=== PATIENT | male | born 1945 | race Caucasian/White ===

== ENCOUNTER → 2017-11-24 | Outpatient (CLI) | payer MEDICARE ==
--- NOTE | 2017-11-24 15:42 | US ---
EXAMINATION TYPE: US scrotum with doppler. Grayscale and color Doppler Duplex imaging performed of steven solitario scrotum. DATE OF EXAM: 11/24/2017 COMPARISON: US 10/23/2015 CLINICAL HISTORY: R19.00 Intra-Abdominal And Pelvic Swelling, Mass. Patient states history of hydroce le. Swelling more on the left EXAM MEASUREMENTS: TESTICLES: Right Testicle: 3.7 x 2.3 x 3.1 cm Left Testicle: 3.8 X 2.1 X 3.9 cm EPIDIDYMIS HEAD: Right Epididymis: 2.2 X 0.7 cm, cystic area visualized measuring 0.5 cm Left Epididymis: Not visualized with certainty due to large cystic area Doppler performed to assess for testicular vascularity; good bilateral color flow and waveforms are s een. There is no evidence of testicular torsion. Presence of varicoceles: Yes, on the left There is a cystic area visualize medial to the left testicle measuring 6.3 x 4.6 x 5.6 cm. Appearing within the testicle, there is a cystic area visualized measuring 2.1 x 1.2 x 2.1 cm. IMPRESSION: Persistent moderate sized left scrotal fluid collection or hydrocele which is not complet nitin anechoic on today's study. This is less prominent in size versus prior exam. There is smaller thi n-walled cystic lesion adjacent left testicle on lateral aspect redemonstrated. No new worrisome intr atesticular lesion identified.
== END | disposition home or self-care (01) ==
LOC: RADUSWWP 12:18
PROVIDERS: ATTEND Family Medicine
DX: N44.2 Benign cyst of testis (principal)
CPT/HCPCS: 76870; 93975

== ENCOUNTER 2017-12-01 07:10 | Day surgery (SDC) | payer MEDICARE ==
[2017-11-28 10:58] VITALS: BMI 30.5
[~2017-12-01 07:10] MED LIST: LACTATED RINGERS 1,000 ML IV SCH; LIDOCAINE 1% 20 ML VIAL (10MG/ML) FOR IV START INTRADERMA PRN
[2017-12-01 07:37] VITALS: TEMP 97.7
[2017-12-01 07:40] LABS: Glucose,Whole Blood 94 mg/dL (75-99)
[2017-12-01] MEDS ORDERED: GLYCOPYRROLATE 0.2 MG/ML 2 ML VIAL ONE (08:37)
[2017-12-01] MEDS ORDERED: LIDOCAINE 1% INJ 10MG/ML (20 ML MDV) ONE (08:37)
[2017-12-01] MEDS ORDERED: PROPOFOL 10 MG/ML 20 ML VIAL IV ONE (08:37)
[2017-12-01] MEDS ORDERED: IV FLUID CONTINUATION 1,000 ML IV ONE (09:17)
--- NOTE | 2017-12-01 09:18 | P.PCN ---
Date of Procedure: 12/01/17 Procedure(s) Performed: Procedure: Total colonoscopy. Preoperative diagnosis: Screening for neoplasia. Postoperative diagnosis: Sigmoid diverticulosis with no evidence of acute diverticulitis, strictures, polyps or cancer. Preparation: HalfLytely prep. Sedation: Was provided by anesthesia. Brief clinical history: The patient is a 72-year-old male who is scheduled for this evaluation for screening for neoplasia age being his risk factor. There is no family history of colon cancer. He has no abdominal complaints, bleeding or anemia. His last colonoscopy was around 10 years ago. Procedure: With the patient on his left lateral decubitus position and after informed consent and adequate sedation, the perianal area was inspected and it did not show any fissures or fistulas. There were no masses felt on digital rectal examination. The Olympus CFQ 160L video colonoscope was then inserted in the rectum in the usual fashion and advanced to the cecum. There were multiple diverticular orifices seen scattered in the sigmoid with no evidence of acute diverticulitis or strictures. The mucosa appeared healthy. No polyps or tumors were seen. I retroflexed the endoscope in the rectum before the endoscope was withdrawn. Low-grade internal hemorrhoids were noted with no evidence of bleeding. The patient tolerated the procedure well. Plan: The patient was reassured. Discussed dietary measures. He will follow up with you as planned and I recommended repeat exam in 10 years depending on his overall health at that time.
[2017-12-01 09:34] VITALS: BP 117/63; PULSE 62; RESP 18
== END 2017-12-01 10:04 | disposition home or self-care (01) ==
LOC: ORWHC2ENDO 07:10
DX: Z12.11 Encounter for screening for malignant neoplasm of colon (principal); K57.30 Diverticulosis of large intestine without perforation or abscess without bleeding; K64.8 Other hemorrhoids; E11.9 Type 2 diabetes mellitus without complications; I10 Essential (primary) hypertension; G47.33 Obstructive sleep apnea (adult) (pediatric); Z99.89 Dependence on other enabling machines and devices; Z79.899 Other long term (current) drug therapy
CPT/HCPCS: 45378; J2001; J2704

== ENCOUNTER → 2017-12-28 | Outpatient (CLI) | payer MEDICARE ==
--- NOTE | 2017-12-29 07:19 | CT ---
EXAMINATION TYPE: CT soft tissue neck w con DATE OF EXAM: 12/28/2017 COMPARISON: NONE HISTORY: Swelling to left side of neck marked by BB. CT DLP: 392.7 mGycm CONTRAST: Patient injected with 100 mL of Omnipaque 300. TECHNIQUE: Axial images at 3 mm thick sections. Reconstructed images in the coronal plane and sagitt al plane are reviewed. FINDINGS: Limited CT sections are obtained the lung apices. The lung apices appear clear. CT neck: The torus tubarius and fossa of Rosenmuller are normal. Operations [employer] spaces are normal. Ther e is some mucosal thickening within anterior ethmoid air cells. Small ossifications along the right m id ethmoid air cells. Paranasal sinuses are otherwise clear. Mastoid air cells are clear. Parotid glands appear normal and symmetrical. Submandibular glands, are normal. Parapharyngeal spac es are normal. No suspicious adenopathy is evident. At the level marked by the BB the posterior margin of the sternocleidomastoid muscle is evident. No u nderlying suspicious mass is present. Some subtle stranding may be within the fat. Scattered related to some inflammatory change. Discrete mass is not identified. The hypopharynx appears within normal limits. Vocal cord level appear symmetrical. Thyroid as visualized is normal. Uncovertebral joint hypertrophy and some facet hypertrophy on the left is present. Degenerative disc changes present C5-C6. IMPRESSIONS: 1. Some very minimal inflammatory change within the subcutaneous and deeper fat may be present at the level marked by the BB. Discrete mass is not identified. 2. Remaining portions of the CT neck are normal.
== END | disposition home or self-care (01) ==
LOC: RADCTMAIN 16:53
PROVIDERS: ATTEND Family Medicine
DX: R59.0 Localized enlarged lymph nodes (principal)
CPT/HCPCS: 82565; 84520; 70491; 36415; Q9967

== ENCOUNTER → 2018-01-19 | Outpatient (CLI) | payer MEDICARE ==
--- NOTE | 2018-01-19 12:37 | SFUN ---
SLEEP STUDY FOLLOW UP NOTE DATE OF SERVICE: 01/19/2018 72-year-old gentleman who has been followed in Sleep Center for treatment of obstructive sleep apnea-hypopnea syndrome. The patient successfully continued to use his CPAP equipment without problems. No snoring during the sleep. Normal Douglas Sleepiness Scale at 2. I checked his CPAP unit. CPAP pressure is 10 cm of water. Usage is 100% of nights for more than 4 hours every 7.2 hours. Apnea-hypopnea index reading for the last month is only 1.9, which is normal. Leak is 29 L/minute which is in acceptable range, but close to the border. MEDICATIONS: Lisinopril, Crestor. PHYSICAL EXAM: GENERAL Patient in no distress. VITAL SIGNS BP 116/62, HR 64, RR 16, height 5-3/4, weight 217.6, BMI 32.2, temperature 97.0, oxygen saturation on room air 96%. HEENT PERRLA, EOMI, evaluation of oropharynx showed moderately low position of soft palate. NECK Supple, no JVD. Thyroid is not palpable. LUNGS Clear to percussion and to auscultation. Good air exchange. No wheezing or rhonchi. HEART S1, S2 regular. No murmurs, gallops, or rubs. ABDOMEN Slightly obese. Soft and nontender. Bowel sounds are present. No organomegaly appreciated. EXTREMITIES No clubbing or cyanosis. DRESS OPERATOR Awake, alert, and oriented X3. Cranial nerves 2 to 7 intact. There is no fasciculation or atrophy. noted. No focal deficits observed. IMPRESSION: 1. Obstructive sleep apnea-hypopnea syndrome, on full control with CPAP at 10 cm of water. Patient demonstrated 100% compliance with treatment, benefitting from treatment. 2. Hypertension. 3. Hyperlipidemia. 4. Mild obesity. 5. Status post craniotomy in the past for subdural hematoma. PLAN: 1. Continue treatment with CPAP every night for the whole night with the same level of pressure. 2. Losing weight. 3. Prescription for all necessary CPAP supplies including mask, tube, filters. 4. No driving if feeling any sleepiness. Thank you very much for allowing me to participate in management of your patient. Sincerely, Chucky Mendoza MD, PhD, FAASM Diplomat of [employer] [place] [employer] [facility] Evi ALEXANDER / IJN: [id number] /
== END ==
LOC: SLEEP 11:17
PROVIDERS: ATTEND Internal Medicine
DX: G47.33 Obstructive sleep apnea (adult) (pediatric) (principal); I10 Essential (primary) hypertension; E78.5 Hyperlipidemia, unspecified; E66.9 Obesity, unspecified; Z98.890 Other specified postprocedural states; Z99.89 Dependence on other enabling machines and devices; Z79.899 Other long term (current) drug therapy

== ENCOUNTER 2018-02-14 09:22 | Day surgery (SDC) | payer MEDICARE ==
[2018-02-07 12:05] VITALS: BMI 31.0
[~2018-02-14 09:22] MED LIST changes: -LIDOCAINE 1% 20 ML VIAL (10MG/ML) FOR IV START INTRADERMA PRN
[2018-02-14 10:46] VITALS: TEMP 97.7
[2018-02-14] MEDS: LIDOCAINE 1% 20 ML VIAL (10MG/ML) FOR IV START INTRADERMA PRN ×2 (10:55→10:58)
[2018-02-14] MEDS: PHENYLEPHRINE 10% OPHTH DROPS 5 ML BTL OP ONE ×3 (10:57→11:10)
[2018-02-14] MEDS: CYCLOPENTOLATE 1% OPHTH SOLN 2 ML BTL OP ONE ×3 (11:00→11:12)
[2018-02-14] MEDS: FLURBIPROFEN 0.03% OPHTH DROPS 2.5 ML BTL OP ONE ×2 (11:02→11:08)
[2018-02-14] MEDS ORDERED: PROPOFOL 10 MG/ML 20 ML VIAL IV ONE (11:20)
[2018-02-14] MEDS ORDERED: LIDOCAINE 1% INJ 10MG/ML (20 ML MDV) ONE (11:20)
[2018-02-14] MEDS ORDERED: BALANCED SALT IRRIG SOLN COMB2 15 ML IRRIG.SOLN INTRAOCULA ONE (11:25)
[2018-02-14] MEDS ORDERED: HYALURONATE SODIUM INTRAOCULAR 1 EACH SYRINGE (10MG/ML) INTRAOCULA ONE (11:26)
[2018-02-14] MEDS ORDERED: EPINEPHrine (PF) 0.5 ML in BALANCED SALT IRRIG SOLN COMB2 500 ML IRRIGATION ONE (11:28)
--- NOTE | 2018-02-14 11:44 | P.OP ---
Date of Procedure: 02/14/18 Procedure(s) Performed: PREOPERATIVE DIAGNOSIS: Cataract, right eye. POSTOPERATIVE DIAGNOSIS: Cataract, right eye. OPERATION: Phacoemulsification cataract, right eye. DESCRIPTION OF PROCEDURE: The patient was taken to the preoperative holding area. Intravenous Propofol was given so as to bring about adequate sedation. The following mixture was given for local anesthesia: 5 mL of 2% lidocaine, 5 mL of 0.75% Marcaine, and 1 mL of Wydase. Approximately 4 mL was injected in the retrobulbar space of the surgical eye. Additional 1 mL was then directed to the temporal area of the surgical eye. This was performed to allow adequate neurological block of the facial muscles. The patient was revived and then taken into the operative room. The patient was prepped and draped in the usual sterile manner for the operative eye. A lid speculum was put into position. The conjunctiva was resected back from the limbus in the 12 o'clock position. Bleeding was controlled with electrocautery. A #69 blade was then used and a half-thickness scleral incision approximately 1-mm posterior to the limbus was made on bare sclera. This was shelved in the clear cornea using a crescent knife. Next a 15-degree blade was used to make a stab incision at the 3 o' clock position at the corneolimbal interface. Keratome blade was then used and the superior wound was extended into the anterior chamber. Viscoelastic was injected into the anterior chamber and to maintain its form. Next, a cystotome was used and a continuous anterior capsulotomy was made without difficulty. Hydrodissection using a blunt cannula and BSS was performed. Phaco probe was then employed and a groove extending from 12 to 6 o'clock in the lens was created. A Clark wand was used through the stab incision so as to perform a divide and conquer technique. Next an irrigation aspiration probe was utilized and any residual cortex was removed from the eye. Again, viscoelastic was injected into the anterior chamber. An Virgilio posterior chamber lens implant was placed in the cartridge and injected into the anterior chamber without difficulty. The logolineupey hook was utilized to spin the lens into position and this was again performed without any difficulty. The irrigation and aspiration probe was again employed and any residual viscoelastic was removed from the eye. Then BSS was injected into the limbal stab incision and the anterior chamber re-inflated. The conjunctiva was reapproximated using electrocautery. One drop of 0.25% Timoptic was placed over the corneal along with TobraDex ophthalmic ointment. Two sterile patches and a Ellis eye shield were taped into position. The patient was transported to the recovery room in stable condition. Pathology: none sent Condition: stable Disposition: same day
[2018-02-14 11:47] VITALS: RESP 18
[2018-02-14 12:10] VITALS: BP 114/66; PULSE 46
[2018-02-14] MEDS ORDERED: BUPIVACAINE (PF) 0.75% 5 ML, HYALURONIDASE, HUMAN RECOMB 150 UNIT, LIDOCAINE 2% (PF) 10... MISCELLANE ONE ×3 (23:00)
[2018-02-14] MEDS ORDERED: GENTAMICIN/PREDNISOL AC OPHTH OINT 3.5GM OPHTHALMIC ONE (23:00)
[2018-02-14] MEDS ORDERED: TIMOLOL 0.5% OPHTH DROPS 5 ML BTL OP ONE (23:00)
== END 2018-02-14 12:25 | disposition home or self-care (01) ==
LOC: OR 09:22
PROVIDERS: ATTEND Ophthalmology
DX: H25.11 Age-related nuclear cataract, right eye (principal); I10 Essential (primary) hypertension; E78.5 Hyperlipidemia, unspecified; G47.33 Obstructive sleep apnea (adult) (pediatric); Z99.89 Dependence on other enabling machines and devices; Z79.82 Long term (current) use of aspirin; Z79.899 Other long term (current) drug therapy; Z87.891 Personal history of nicotine dependence
CPT/HCPCS: 66984; V2632; V2788; J3470; J2001 ×2; J0171; J2704

== ENCOUNTER 2018-03-21 08:17 | Day surgery (SDC) | payer MEDICARE ==
[2018-03-09 15:11] VITALS: BMI 30.4
[~2018-03-21 08:17] MED LIST changes: +BUPIVACAINE (PF) 0.75% 5 ML, HYALURONIDASE, HUMAN RECOMB 150 UNIT, LIDOCAINE 2% (PF) 10... MISCELLANE ONE; +GENTAMICIN/PREDNISOL AC OPHTH OINT 3.5GM OPHTHALMIC ONE; +TIMOLOL 0.5% OPHTH DROPS 5 ML BTL OP ONE
[2018-03-21] MEDS: CYCLOPENTOLATE 1% OPHTH SOLN 2 ML BTL OP ONE ×3 (09:22→09:40)
[2018-03-21 09:23] VITALS: TEMP 97
[2018-03-21] MEDS: FLURBIPROFEN 0.03% OPHTH DROPS 2.5 ML BTL OP ONE ×3 (09:25→09:43)
[2018-03-21] MEDS: PHENYLEPHRINE 10% OPHTH DROPS 5 ML BTL OP ONE ×3 (09:28→09:46)
[2018-03-21 09:37] LABS: Glucose,Whole Blood 101 mg/dL (75-99)
[2018-03-21] MEDS ORDERED: PROPOFOL 10 MG/ML 20 ML VIAL IV ONE (10:22)
[2018-03-21] MEDS ORDERED: EPINEPHrine (PF) 0.5 ML in BALANCED SALT IRRIG SOLN COMB2 500 ML IRRIGATION ONE (10:31)
[2018-03-21] MEDS ORDERED: HYALURONATE SODIUM INTRAOCULAR 1 EACH SYRINGE (10MG/ML) INTRAOCULA ONE (10:33)
[2018-03-21] MEDS ORDERED: BALANCED SALT IRRIG SOLN COMB2 15 ML IRRIG.SOLN IRRIGATION ONE (10:33)
--- NOTE | 2018-03-21 10:44 | P.OP ---
Date of Procedure: 03/21/18 Procedure(s) Performed: PREOPERATIVE DIAGNOSIS: Cataract, left eye. POSTOPERATIVE DIAGNOSIS: Cataract, left eye. OPERATION: Phacoemulsification cataract, left eye. DESCRIPTION OF PROCEDURE: The patient was taken to the preoperative holding area. Intravenous Propofol was given so as to bring about adequate sedation. The following mixture was given for local anesthesia: 5 mL of 2% lidocaine, 5 mL of 0.75% Marcaine, and 1 mL of Wydase. Approximately 4 mL was injected in the retrobulbar space of the surgical eye. Additional 1 mL was then directed to the temporal area of the surgical eye. This was performed to allow adequate neurological block of the facial muscles. The patient was revived and then taken into the operative room. The patient was prepped and draped in the usual sterile manner for the operative eye. A lid speculum was put into position. The conjunctiva was resected back from the limbus in the 12 o'clock position. Bleeding was controlled with electrocautery. A #69 blade was then used and a half-thickness scleral incision approximately 1-mm posterior to the limbus was made on bare sclera. This was shelved in the clear cornea using a crescent knife. Next a 15-degree blade was used to make a stab incision at the 3 o' clock position at the corneolimbal interface. Keratome blade was then used and the superior wound was extended into the anterior chamber. Viscoelastic was injected into the anterior chamber and to maintain its form. Next, a cystotome was used and a continuous anterior capsulotomy was made without difficulty. Hydrodissection using a blunt cannula and BSS was performed. Phaco probe was then employed and a groove extending from 12 to 6 o'clock in the lens was created. A Clark wand was used through the stab incision so as to perform a divide and conquer technique. Next an irrigation aspiration probe was utilized and any residual cortex was removed from the eye. Again, viscoelastic was injected into the anterior chamber. An Virgilio Restor posterior chamber lens implant was placed in the cartridge and injected into the anterior chamber without difficulty. The Sinskey hook was utilized to spin the lens into position and this was again performed without any difficulty. The irrigation and aspiration probe was again employed and any residual viscoelastic was removed from the eye. Then BSS was injected into the limbal stab incision and the anterior chamber re-inflated. The conjunctiva was reapproximated using electrocautery. One drop of 0.25% Timoptic was placed over the corneal along with TobraDex ophthalmic ointment. Two sterile patches and a Ellis eye shield were taped into position. The patient was transported to the recovery room in stable condition. Pathology: none sent Condition: stable Disposition: same day
[2018-03-21 10:50] VITALS: RESP 18
[2018-03-21 11:23] VITALS: BP 125/68; PULSE 48
== END 2018-03-21 11:20 | disposition home or self-care (01) ==
LOC: OR 08:17
PROVIDERS: ATTEND Ophthalmology
DX: H25.12 Age-related nuclear cataract, left eye (principal); I10 Essential (primary) hypertension; E78.5 Hyperlipidemia, unspecified; G47.33 Obstructive sleep apnea (adult) (pediatric); E11.9 Type 2 diabetes mellitus without complications; Z79.899 Other long term (current) drug therapy; Z87.891 Personal history of nicotine dependence; Z98.41 Cataract extraction status, right eye; Z96.1 Presence of intraocular lens
CPT/HCPCS: 66984; V2632; V2788; J3470; J2001; J0171; J2704

== ENCOUNTER → 2019-02-22 | Outpatient (CLI) | payer MEDICARE ==
--- NOTE | 2019-02-22 11:15 | SFUN ---
SLEEP CENTER FOLLOW UP NOTE DATE OF SERVICE: 02/22/2019 This 73-year-old gentleman had been followed in sleep center for treatment of obstructive sleep apnea-hypopnea syndrome. The patient continued to use his CPAP equipment every night for the whole night without any problems related to mask fitting, pressure or humidification. Stanton Sleepiness Scale today is 2. I checked his CPAP unit. CPAP pressure is 10 cm of water. Usage is 100% of the time more than 4 hours, average 7.5 hours. Leak 31 L/minute which is borderline. Apnea- hypopnea index is only 1.8, which is totally perfect. MEDICATIONS: Lisinopril, Crestor. PHYSICAL EXAMINATION: During physical exam, patient in no distress. VITAL SIGNS: BP 121/62, HR 58, RR 16, height 5 feet 8-1/2 inches, weight 214 pounds, body mass index 32.0, temperature 97.2, oxygen saturation at room air 95%. HEENT: PERRLA, EOMI. Oropharynx moderately low position of soft palate. NECK: Supple, no JVD. Thyroid is not palpable. LUNGS: Clear to percussion and to auscultation. Good air exchange. No wheezing or rhonchi. HEART: S1, S2 regular. No murmurs, gallops, or rubs. ABDOMEN: Slightly obese. EXTREMITIES: No clubbing or cyanosis. OUTER DIAMETER GRINDER: Awake, alert, and oriented X3. Cranial nerves 2 to 7 intact. There is no fasciculation or atrophy. noted. No focal deficits observed. IMPRESSION: 1. Obstructive sleep apnea-hypopnea syndrome. Patient demonstrated 100% compliance with treatment benefitting from treatment. 2. Hypertension. 3. Mild obesity. 4. Hyperlipidemia. 5. Status post craniotomy in the past for subdural hematoma. PLAN: 1. Patient will continue to use CPAP equipment with the same-level of pressure 10 cm of water every night for the whole night. 2. Watching and losing weight. 3. Sleep hygiene with regular time in bed for at least 7-1/2 to 8 hours. 4. No driving if feeling any sleepiness. 5. We will maintain all necessary CPAP supplies prescriptions including mask, tubes and filters. Thank you very much for allowing me to participate in management of your patient. Sincerely, Chucky Mendoza MD, PhD, FAASM Diplomat of [employer] [facility] [place] MMODL / IJN: [id number] /
== END ==
LOC: SLEEP 10:19
PROVIDERS: ATTEND Internal Medicine
DX: G47.33 Obstructive sleep apnea (adult) (pediatric) (principal); I10 Essential (primary) hypertension; E66.9 Obesity, unspecified; E78.5 Hyperlipidemia, unspecified; Z99.89 Dependence on other enabling machines and devices; Z79.899 Other long term (current) drug therapy